=== PATIENT | female | born 1940 | race Caucasian/White ===

== ENCOUNTER 2016-12-02 10:20 | Emergency (ER) | payer MEDICARE, OTHER ==
[2016-12-02 10:34] VITALS: BMI 33.0
[2016-12-02] MEDS ORDERED: HYDROmorphone 1 MG INJECTION IV ONE (10:52)
[2016-12-02] MEDS ORDERED: ONDANSETRON HCL 4 MG/2 ML VIAL IV ONE (10:52)
[2016-12-02] MEDS ORDERED: NS 1,000 ML IV ONE (10:52)
--- NOTE | 2016-12-02 11:45 | DIRPT ---
CLINICAL DATA: Status post slip and fall this morning with a left shoulder injury. Pain. Initial encounter. EXAM: LEFT SHOULDER - 2+ VIEW COMPARISON: None. FINDINGS: The patient has a mildly impacted surgical neck fracture of the left humerus extending into the greater tuberosity. No acute bony or joint abnormality is identified. No notable degenerative disease is seen. IMPRESSION: Acute surgical neck fracture left humerus involves the greater tuberosity. Electronically Signed By: Nicolas Ferrari M.D. On: 12/02/2016 11:42
--- NOTE | 2016-12-02 12:11 | EDPRACDOC ---
- General Information Chief Complaint: Fall Stated Complaint: FALL Time Seen by Provider: 12/02/16 10:52 Information Source: Patient Home Medications: Home Medications Atorvastatin Calcium [Lipitor] 20 mg PO QHS 04/25/13 Amlodipine Besylate/Benazepril [Lotrel 10-20 mg Capsule] 1 cap PO DAILY Calcium Carbonate/Vitamin D3 [Calcium 600 + Vit D 400 Tablet] 1 tab PO DAILY Levocetirizine Dihydrochloride [Xyzal] 5 mg PO QHS 10/24/16 Multivitamin [One Daily] 1 tab PO DAILY 10/24/16 Hydrocodone Bit/Acetaminophen [Lortab 5/325] 1 tab PO Q6H PRN #14 tab 12/02/16 Allergies/Adverse Reactions: Allergies Allergy/AdvReac Type Severity Reaction Status Date / Time Sulfa (Sulfonamide Allergy Nausea only Verified 12/02/16 10:34 Antibiotics) - History of Present Illness Onset: [employer] HPI: FALL; PAIN TO LEFT SHOULDER Location: Reports: Left Circumstances: Reports: Fall Able to Move Shoulder?: Yes Associated Signs & Symptoms: Reports: None ED Past Medical History - History Reviewed Yes Nurses notes reviewed and agree except as marked - Patient Medical History Cardiac History: Reports: Hypertension, Hypercholesterolemia GI/ History: Reports: Urinary Tract Infection Musculoskeletal History: Reports: Arthritis (GENERALIZED) Psychological History: Denies: Depression Surgical History: Reports: Hysterectomy (1996)Comment Only: Cholecystectomy ( [facility]) - Social Medical History Smoking Status: Never smoker EDM Review of Systems - Review of Systems ROS Negative Except as Marked: Yes All systems reviewed and were negative except as marked - Physical Exam Constitutional: Alert (Awake), No apparent distress Oriented to: Time, Person, Place Last recorded Vital Signs: Last Vital Signs Temp 97.4 F L 12/02/16 10:30 Pulse 61 12/02/16 11:04 Resp 20 12/02/16 11:04 BP 118/61 12/02/16 11:04 Pulse Ox 96 12/02/16 11:04 Oxygen Pulse Oxygen Saturation 96 O2 Device Room Air Oxygen Flow Rate Fraction of Inspired Oxygen ( FIO2) - HEENT Head: Normal ( normocephalic) Eye Exam: Normal (PERRL, EOMI, Sclera white) Oropharynx: Normal (Pharynx:Moist without exudate,Gums-no swelling) Tympanic Membrane: Normal ENT EAC: Normal TMJ: Normal Nose: No Symptoms Reported (septum midline) Neck: Normal (FROM, trachea at midline) - Respiratory/Cardiovascular Respiratory: Normal - CTA (BBS clear to auscultation without adventitious sounds ) Cardiovascular: Normal (RRR without murmur, gallop or rub) - GI Auscultation: Normal (NABS) Palpation: Normal (Soft,No rebound or guarding, non distended) Tenderness: Non tender Rico's Sign: Negative - Musculoskeletal Back: Normal (Non-Tender) Extremities: Normal (Normal tone, Pulses 2+ No cyanosis or edema, FROM) - Integumentary Skin: Normal, Warm, Dry Lymphatics: Normal (no adenopathy) - Neurologic Memory Impaired: Normal Motor Function: Normal (Normal tone, Pulses 2+ No cyanosis or edema, FROM) Cranial Nerve: Normal (CN II-X11 intact sensation, strength 5/5) Cerebellar: Normal Mood Description: Normal Perception: Normal ED Shoulder Problem Exam - Musculoskeletal Clavicle: Tender Shoulder: Limited ROM Arm: Normal Distal Function/Circulation: Normal, Capillary Refill Decision Time to Discharge: 12:10 - Departure Yes I personally saw and evaluated the patient. Disposition: Home Condition: Good Final Diagnosis: Accidental fall, LEFT PROXIMAL HUMERUS FX Instructions: RICE: Routine Care for Injuries Education/Counseling Given To: Patient, Family Member Education/Counseling Given Regarding: Diagnosis, Treatment Referrals: Divya Ernandez MD [Primary Care Provider] - One Week Lambert Neri MD [Staff Physician] - One Week Prescriptions: New Hydrocodone Bit/Acetaminophen [Lortab 5/325] 1 tab PO Q6H PRN #14 tab PRN Reason: Pain No Action Atorvastatin Calcium [Lipitor] 20 mg PO QHS Levocetirizine Dihydrochloride [Xyzal] 5 mg PO QHS Calcium Carbonate/Vitamin D3 [Calcium 600 + Vit D 400 Tablet] 1 tab PO DAILY Amlodipine Besylate/Benazepril [Lotrel 10-20 mg Capsule] 1 cap PO DAILY Multivitamin [One Daily] 1 tab PO DAILY
[2016-12-02] MEDS ORDERED: GI COCKTAIL 30 ML DOSE PO ONE (12:16)
[2016-12-02 13:47] VITALS: BP 120/70; PULSE 70; TEMP 98.1
== END 2016-12-02 13:35 | disposition home or self-care (01) ==
LOC: ED 10:20
DX: S42.212A Unspecified displaced fracture of surgical neck of left humerus, initial encounter for closed fracture (principal); W19.XXXA Unspecified fall, initial encounter; I10 Essential (primary) hypertension; E78.00 Pure hypercholesterolemia, unspecified; Z79.899 Other long term (current) drug therapy
CPT/HCPCS: 73030; 96361; 96374; 96375; 99284; A9270; J1170; J2405; J3490